=== PATIENT | female | born 1950 | race Caucasian/White ===

== ENCOUNTER → 2017-08-23 20:43 | Outpatient (CLI) | payer MEDICARE, BC ==
[2015-12-26 10:06] VITALS: BMI 21.3
[~2017-08-23 20:43] MED LIST: CENTRUM COMPLE1 EACH PO; COLACE100 MG PO; CURCUMIN PO; MIRALAX17 GM PO; PERCOCET 10/3251 TA1 PO; VITAMIN C1000 MG PO; VITAMIN D31000 UNIT PO; [UNRECOGNIZED DRUG - OTHER] PO
== END | disposition home or self-care (01) ==
LOC: D.MAMMO 10:00
DX: Z12.31 Encounter for screening mammogram for malignant neoplasm of breast (principal)